=== PATIENT | male | born 1960 | race Caucasian/White ===

== ENCOUNTER 2016-08-12 06:22 | Day surgery (SDC) | payer BC ==
[2016-08-12] MEDS ORDERED: TAMSULOSIN HCL 0.4 MG CAP.ER.24H (FP) ONE (06:49)
[2016-08-12 07:34] VITALS: BMI 40.0
[2016-08-12] MEDS ORDERED: ROCURONIUM BROMIDE 50 MG/5 ML VIAL ONE ×2 (07:42→08:08)
[2016-08-12] MEDS ORDERED: MIDAZOLAM HCL 2 MG/2 ML SINGLE DOSE VIAL ONE (07:42)
[2016-08-12] MEDS ORDERED: PROPOFOL 20 ML ONE (07:42)
[2016-08-12] MEDS ORDERED: ceFAZolin SODIUM 1 GM VIAL ONE (08:08)
[2016-08-12] MEDS ORDERED: HYDROmorphone HCL/PF 1 MG/ML VIAL (FOR PYXIS CHARGING ONLY) ONE (08:32)
[2016-08-12] MEDS ORDERED: ONDANSETRON 4 MG/2 ML VIAL ONE (08:34)
[2016-08-12] MEDS ORDERED: DEXAMETHASONE SOD PHOSPHATE 4 MG/1 ML VIAL ONE (08:34)
[2016-08-12] MEDS ORDERED: ACETAMINOPHEN 325 MG TABLET (FP) PO PRN (09:38)
[2016-08-12] MEDS ORDERED: ONDANSETRON 4 MG/2 ML VIAL IVPUSH PRN (09:39)
[2016-08-12] MEDS ORDERED: LACTATED RINGERS SOLUTION 1,000 ML IV SCH (09:45)
--- NOTE | 2016-08-12 09:47 | OP ---
DATE OF OPERATION: 08/12/2016 PREOPERATIVE DIAGNOSIS: Incarcerated ventral hernia. POSTOPERATIVE DIAGNOSIS: Incarcerated ventral hernia. PROCEDURE: Repair of chronic incarcerated ventral hernia with mesh/intermediate wound closure (5cm). OPERATING SURGEON: Moi Villela MD NECK BAND SETTER: Yfn Kiran DO ANESTHESIA: Halima Del Valle MD (general) HISTORY: A 56-year-old man who presented for reduction and repair of chronically incarcerated ventral hernia with mesh. DESCRIPTION OF PROCEDURE: With the patient in the supine position, under general anesthesia, the abdomen was prepped and draped in sterile fashion using chlorhexidine. A 5-cm transverse incision was made directly over the obvious hernia, deepened into the subcutaneous space. The hernia sac was easily encountered. The sac was cleaned and freed to the level of the fascial ring. The fascial ring was incised circumferentially and the sac, along with its contents which appeared to be fibrofatty in nature, were entire reduced. Using sharp dissection, the retrorectus/preperitoneal space was developed in order to create sufficient room for placement of an underlying mesh. Ultimately, a Bard Ventralex hernia patch measuring 8 cm in diameter was selected for the repair. The patch was placed in the retrorectus/preperitoneal space. It was pulled up against the undersurface of the anterior abdominal wall musculature using a strap. It was fixed in each of its quadrants with a [id number] No. 1 Prolene suture, anchoring the mesh to the overlying rectus musculature. After adequate hemostasis and irrigation, the fascia was closed in a transverse fashion using interrupted 0 Vicryl sutures. Subcutaneous tissues were irrigated and adequate hemostasis noted. Ultimately the wound was closed in layers. Subcutaneous tissues were approximated with 3-0 chromic suture. The subcuticular was approximated with interrupted 4-0 Biosyn sutures. The skin was reapproximated with 4-0 Biosyn subcuticular stitch in continuous fashion. Dermabond applied, procedure terminated. Needle and instrument count correct. Estimated blood loss minimal. SPECIMEN: None. IMPLANT: Bard Ventralex hernia patch, 8 cm diameter. DRAINS: None. Phillip [id number] MTDD
--- NOTE | 2016-08-12 11:09 | HP ---
DATE OF ADMISSION: 08/12/2016 HISTORY: This 56-year-old man was admitted to the [facility] for reduction and repair of chronically incarcerated ventral hernia. Patient has had the hernia for some time. It has been becoming somewhat more symptomatic. He decided to move in the direction of management. No underlying GI, or respiratory complaints to suggest redisposition of hernia formation. PATIENTS PAST MEDICAL HISTORY: Significant for hypertension, gout, type 2 diabetes. PAST SURGICAL HISTORY: Significant for left neck excisional biopsy for benign entity remotely. FAMILY HISTORY: Father with history of cerebral aneurysm and stroke, mother with history of hypertension, siblings relatively healthy. SOCIAL HISTORY: Positive alcohol of 2-3 drinks weekly, former smoker up until 1984, not currently smoking. REVIEW OF SYSTEMS: Otherwise, nil. PHYSICAL EXAMINATION: Abdomen: Obese, soft, nontender. Obvious incarcerated ventral hernia stemming from the central ring in the abdomen involving the supraumbilical midline. No other significant findings. IMPRESSION: Chronically incarcerated ventral hernia. PLAN: Reduction and repair of chronically incarcerated ventral hernia with mesh. Indications, alternatives, possible complications were reviewed. Consent obtained. Patient is to be seen preoperatively by Dr. Christopher Shea. Please refer to his notes for those medical details. Phillip SOTO/[id number] cc: Christopher Shea MD
[2016-08-12 12:03] VITALS: BP 132/87; PULSE 56; TEMP 98
== END 2016-08-12 11:40 | disposition home or self-care (01) ==
LOC: FASU 06:22
PROVIDERS: ATTEND Surgery
PROC: 0WUF0JZ Supplement Abdominal Wall with Synthetic Substitute, Open Approach (ICD-10-PCS; principal; 2016-08-12 08:14)
DX: K43.6 Other and unspecified ventral hernia with obstruction, without gangrene (principal); I10 Essential (primary) hypertension; E11.9 Type 2 diabetes mellitus without complications; M10.9 Gout, unspecified
CPT/HCPCS: 94010; 94760

== ENCOUNTER 2018-05-07 09:40 | Emergency (ER) | payer BC ==
[2018-05-07 09:52] VITALS: PULSE 92; TEMP 97.8; BMI 38.2
--- NOTE | 2018-05-07 09:58 | PDOC ---
History of Present Illness - General Chief Complaint: Blood Pressure Problem Stated Complaint: BLOOD PRESSURE HIGH/CP Time Seen by Provider: 05/07/18 09:57 - History of Present Illness Initial Comments: 05/07/18 11:21 The patient is a 57 year old male with a history of HTN, DM who presents for evaluation of high blood pressure and chest pain. The patient notes intermittent pinpoint chest pain over the past few days since lifting his bike into his car. The patient noted that his blood pressure was elevated today prompting his presentation to the ED for further evaluation. He notes that he bikes 12 miles every other day and does not experience the chest pain when biking. He otherwise denies fevers, chills, SOB, nausea, vomiting, abdominal pain, or changes with urination or bowel movements. Past History - Past Medical History Allergies/Adverse Reactions: Allergies Allergy/AdvReac Type Severity Reaction Status Date / Time No Known Drug Allergies Allergy Verified 05/07/18 09:47 Home Medications: Ambulatory Orders Hydrochlorothiazide [Hctz -] 25 mg PO HS 08/20/13 Olmesartan Medoxomil [Benicar -] 20 mg PO HS 08/20/13 Potassium Chloride [K-Dur] 20 meq PO HS 08/20/13 Amlodipine Besylate [Norvasc -] 10 mg PO HS 08/05/16 Metoprolol Succinate [Toprol XL -] 200 mg PO HS 08/05/16 metFORMIN HCL [Metformin HCl] 1,000 mg PO DAILY 08/05/16 Allopurinol [Zyloprim -] 300 mg PO DAILY 05/07/18 Simethicone [Gas-X Ultra Strength] 1 tab PO ONCE 05/07/18 Anemia: No Asthma: No Cancer: Yes (BASAL CELL ON HANDS) Cardiac Disorders: No CVA: No COPD: No CHF: No Dementia: No Diabetes: Yes GI Disorders: No Disorders: No HTN: Yes Hypercholesterolemia: No Liver Disease: No Seizures: No Thyroid Disease: No - Surgical History Abdominal Surgery: No Appendectomy: No Cardiac Surgery: No Cholecystectomy: No Lung Surgery: No Neurologic Surgery: No Orthopedic Surgery: No - Immunization History Immunization Up to Date: Yes - Suicide/Smoking/Psychosocial Hx Smoking History: Never smoked Have you smoked in the past 12 months: No Number of Cigarettes Smoked Daily: 0 If you are a former smoker, when did you quit?: 0 Information on smoking cessation initiated: No Hx Alcohol Use: Yes (SOCIALLY) Drug/Substance Use Hx: No Substance Use Type: None Review of Systems - Review of Systems Comments:: 05/07/18 11:34 Constitutional: No fevers, chills, fatigue, malaise HEENT: No Rhinorrhea, nasal congestion, visual changes Cardiovascular: Chest pain. No syncope, palpitations, lightheadedness Respiratory: No Cough, SOB, Hemoptysis, Gastrointestinal: No Abdominal pain, Nausea, Vomiting, Constipation, Diarrhea, Melena Genitourinary: No Dysuria, Frequency, Urgency, Hesitancy, Hematuria, Flank pain Musculoskeletal: No Myalgia, arthralgia Skin: No rashes, itching, bruising, pallor Neurologic: No Headache, Dizziness, Numbness, Weakness, or Tingling Psychiatric: No Hallucinations. No SI or HI *Physical Exam - Vital Signs Last Vital Signs Temp Pulse Resp BP Pulse Ox 97.8 F 92 H 18 165/88 100 05/07/18 09:48 05/07/18 09:48 05/07/18 09:48 05/07/18 09:48 05/07/18 09:48 - Physical Exam Comments: 05/07/18 11:34 General Appearance: Nourished. No Apparent Distress HEENT: No Pharyngeal Erythema, Tonsillar Exudate, Tonsillar Erythema Neck: No Cervical Lymphadenopathy Respiratory/Chest: Lungs Clear, Normal Breath Sounds. No Crackles, Rales, Rhonchi, Wheezing Cardiovascular: Regular Rhythm, Regular Rate. No Murmur, Gallops, Rubs Gastrointestinal/Abdominal: Normal Bowel Sounds, Soft. No Guarding, Rebound, Tenderness Musculoskeletal: No CVA Tenderness Extremity: Normal Capillary Refill Integumentary: Normal Color, Dry, Warm Neurologic: Fully Oriented, Alert, Normal Mood/Affect, Normal Response, Heart Score/ECG Review - History History: Slightly suspicious - Electrocardiogram EKG: Normal - Age Age: 45-65 - Risk Factors Risk Factors Heart Score: Yes Hx Hypertension, Yes Hx Diabetes Based on the list above the patient has:: 1-2 risk factors - Troponin Troponin: </= normal limit - Score Heart Score - Total: 2 ED Treatment Course - LABORATORY CBC & Chemistry Diagram: 05/07/18 10:45 05/07/18 10:45 Medical Decision Making - Medical Decision Making 05/07/18 11:37 The patient is a 57 year old male with a history of HTN, DM who presents for evaluation of high blood pressure and chest pain. Differential includes but is not limited to: Musculskeletal, ACS, Infectious, Metabolic Derangement. Given the patient's history and physical exam, it is likely his symptoms are musculoskeletal in nature. We will obtain a cbc, cmp, troponin, ekg, chest plain film to evaluate further. We will continue to monitor and reassess while here in the ED. 05/07/18 14:38 CBC, cmp, troponin and second troponin are unremarkable. Chest plain film is unremarkable. We are comfortable discharging the patient home with primary care provider and cardiology follow up. We discussed the results, plan, and return precautions with the patient who voiced understanding and is agreeable with the plan. *DC/Admit/Observation/Transfer Diagnosis at time of Disposition: Chest pain Qualifiers: Chest pain type: unspecified Qualified Code(s): R07.9 - Chest pain, unspecified - Discharge Dispostion Disposition: HOME Condition at time of disposition: Stable Decision to Admit order: No - Referrals Referrals: Christopher Shea MD [Primary Care Provider] - - Patient Instructions Printed Discharge Instructions: DI for High Blood Pressure, DI for Chest Pain Additional Instructions: Please return to the ER if you experience concerning or worsening symptoms including worsening difficulty breathing, weakness, or chest pain. Your lab results were normal here in the ER. Please call to schedule a follow up appointment with your primary care provider and our furniture builder within 2-3 days to discuss your ER visit and further management of your symptoms. - Post Discharge Activity
--- NOTE | 2018-05-07 11:08 | PDOC ---
Attending Attestation - Resident Resident Name: Davion Olivera - ED Attending Attestation I have performed the following: I have examined & evaluated the patient, The case was reviewed & discussed with the resident, I agree w/resident's findings & plan, Exceptions are as noted - HPI HPI: 05/07/18 10:53 Mr De Jesus is a 57 yo M who presents to the ER today with a complaint of elevated BP and chest pain Pt has a h/o HTN Pt has been feeling bloated He checked his blood pressure and noted that it was elevated This made him anxious He also noted chest pain which has been present for the past 3 days Described as sharp, located in the center of the chest No radiation to the arm, jaw, or back No diaphoresis, no nausea Pain is worse with palpation of the chest, expanding the chest wall, deep breath Pt ride his bike for approximately 12 miles every other - Physicial Exam PE: 05/07/18 11:09 Pt is awake and alert, oriented RRR CTA B/L No abd tenderness Chest wall tenderness to palpation No lower extremity edema - Medical Decision Making 05/07/18 11:11 Heart score: 2 Can do 2 troponins EKG: NSR rate of 89 bpm, L axis deviation, no st elevation or depression, t waves upright Will do labs Will re assess 05/07/18 11:38 CXR: nml cardiopulmonary silhouette, no effusion, no consolidation, no infiltrates Laboratory Tests 05/07/18 05/07/18 10:45 10:45 WBC 5.1 Hgb 15.0 Hct 43.4 Plt Count 138 BUN 16 Creatinine 0.9 Creatine Kinase 53 Troponin I < 0.02 Will do 3 hour trop Pt stable 05/07/18 11:39 05/07/18 14:41 Repeat trop negative
[2018-05-07 11:10] LABS: BASO % 0.9 % (0-2.0); EOS % 2.3 % (0-4.5); HEMATOCRIT 43.4 % (35.4-49); LYMPH % 31.6 % (8-40); MCH 31.2 pg (25.7-33.7); MCHC 34.7 g/dl (32.0-35.9); MEAN PLT VOLUME 7.2 fl (7.5-11.1); MONO % 6.7 % (3.8-10.2); NEUT % 58.5 % (42.8-82.8); PLATELET COUNT 138 K/MM3 (134-434); RBC 4.82 M/mm3 (4.00-5.60); RDW 12.8 % (11.9-15.9); WHITE BLOOD COUNT 5.1 K/mm3 (4.0-10.0)
[2018-05-07 11:23] LABS: ALBUMIN 3.6 g/dl (3.4-5.0); ALK PHOS 62 U/L (45-117); ANION GAP 9 MMOL/L (8-16); BILIRUBIN,TOTAL 0.5 mg/dL (0.2-1); BLOOD UREA NITROGEN 16 mg/dL (7-18); CALCIUM 8.6 mg/dL (8.5-10.1); CHLORIDE 105 mmol/L (98-107); CO2 25 mmol/L (21-32); CREATININE 0.9 mg/dL (0.55-1.3); GLUCOSE,RANDOM 227 mg/dL (74-106); POTASSIUM 3.7 mmol/L (3.5-5.1); SGOT/AST 22 U/L (15-37); SGPT/ALT 41 U/L (13-61); SODIUM 139 mmol/L (136-145); TOT PROT 7.3 g/dl (6.4-8.2)
[2018-05-07 13:49] VITALS: BP 147/96
--- NOTE | 2018-05-08 10:56 | EKG ---
Test Reason : Blood Pressure : / mmHG Vent. Rate : 089 BPM Atrial Rate : 089 BPM P-R Int : 198 ms QRS Dur : 098 ms QT Int : 366 ms P-R-T Axes : 049 -33 042 degrees QTc Int : 445 ms NORMAL SINUS RHYTHM LEFT AXIS DEVIATION INFERIOR INFARCT (CITED ON OR BEFORE 03-JUN-2015) ABNORMAL ECG WHEN COMPARED WITH ECG OF 20-APR-2016 09:12, SINUS RHYTHM HAS REPLACED ATRIAL FIBRILLATION Confirmed by MANDEEP CALHOUN MD ([id number]) on 05/08/2018 10:56:00 AM Referred By: Confirmed By:MANDEEP CALHOUN MD
== END 2018-05-07 14:45 | disposition home or self-care (01) ==
LOC: JER 09:40
DX: R07.9 Chest pain, unspecified (principal); I10 Essential (primary) hypertension; E11.9 Type 2 diabetes mellitus without complications; Z79.84 Long term (current) use of oral hypoglycemic drugs; Z85.828 Personal history of other malignant neoplasm of skin
CPT/HCPCS: 36415; 71046-TC-FY; 80053; 82550; 84484; 85025; 93005; 93010; 99283-25

== ENCOUNTER 2019-09-27 12:45 | Emergency (ER) | payer BC ==
[2019-09-27 13:01] VITALS: BP 160/93; PULSE 87; TEMP 98.1; BMI 37.5
--- NOTE | 2019-09-27 13:22 | PDOC ---
History of Present Illness - General Chief Complaint: Weakness Stated Complaint: RT ARM PINS AND NEEDLES Time Seen by Provider: 09/27/19 13:22 - History of Present Illness Initial Comments: 09/27/19 14:18 59 yo M PMH HTN, NIDDM, presenting with R arm numbness and tingling. Reportedly went to the gym earlier today, was stretching his arm above his head, and felt a warm sensation down his arm which turned into pins and needles, focused primarily in the ulnar distribution. Coming and going, lasting minutes at a time. Describes sensation as "arm falling asleep". Denies weakness, denies any numbness or tingling elsewhere. Further denies CP, SOB, abd pain, fevers/chills, N/V, recent travel, [place]. Past History - Past Medical History Allergies/Adverse Reactions: Allergies Allergy/AdvReac Type Severity Reaction Status Date / Time No Known Drug Allergies Allergy Verified 09/27/19 13:01 Home Medications: Ambulatory Orders Hydrochlorothiazide [Hctz -] 25 mg PO HS 08/20/13 Olmesartan Medoxomil [Benicar -] 20 mg PO HS 08/20/13 Potassium Chloride [K-Dur] 20 meq PO HS 08/20/13 Amlodipine Besylate [Norvasc -] 10 mg PO HS 08/05/16 Metoprolol Succinate [Toprol XL -] 200 mg PO HS 08/05/16 metFORMIN HCL [Metformin HCl] 1,000 mg PO DAILY 08/05/16 Allopurinol [Zyloprim -] 300 mg PO DAILY 05/07/18 Simethicone [Gas-X Ultra Strength] 1 tab PO ONCE 05/07/18 Anemia: No Asthma: No Cancer: Yes (BASAL CELL ON HANDS) Cardiac Disorders: No CVA: No COPD: No CHF: No Dementia: No Diabetes: Yes GI Disorders: No Disorders: No HTN: Yes Hypercholesterolemia: No Liver Disease: No Seizures: No Thyroid Disease: No - Surgical History Abdominal Surgery: No Appendectomy: No Cardiac Surgery: No Cholecystectomy: No Lung Surgery: No Neurologic Surgery: No Orthopedic Surgery: No - Immunization History Immunization Up to Date: Yes - Psycho Social/Smoking Cessation Hx Smoking History: Never smoked Have you smoked in the past 12 months: No Number of Cigarettes Smoked Daily: 0 If you are a former smoker, when did you quit?: 0 Information on smoking cessation initiated: No Hx Alcohol Use: No Drug/Substance Use Hx: No Substance Use Type: None Review of Systems - Review of Systems Comments:: 09/27/19 14:36 GENERAL/CONSTITUTIONAL: denies fever, chills, diaphoresis, generalized weakness, malaise, loss of appetite, weight change HEAD, EYES, EARS, NOSE AND THROAT: denies rhinorrhea, nasal congestion, throat pain, throat swelling, difficulty swallowing, mouth swelling, ear pain, eye pain, visual changes NEUROLOGIC: endorses tingling down R arm, primarily in ulnar distribution. Denies headache, focal weakness, dizziness, unsteady gait, seizure, mental status changes, bladder or bowel incontinence CARDIOVASCULAR: denies chest pain, syncope, palpitations, irregular heart rate, lightheadedness, peripheral edema RESPIRATORY: denies cough, shortness of breath, dyspnea with exertion, orthopnea, wheezing, stridor, hemoptysis GASTROINTESTINAL: denies abdominal pain, abdominal distension, nausea, vomiting, diarrhea, constipation, melena, hematochezia GENITOURINARY: denies dysuria, frequency, urgency, hesitancy, hematuria, flank pain, genital pain MUSCULOSKELETAL: denies myalgia, arthralgia, joint swelling, back pain, neck pain SKIN: denies rash, itching, pallor HEMATOLOGIC/IMMUNOLOGIC: denies easy bleeding, easy bruising, lymphadenopathy, frequent infections ENDOCRINE: denies unexplained weight gain, unexplained weight loss, heat intolerance, cold intolerance PSYCHIATRIC: denies anxiety, depression, suicidal or homicidal ideation, hallucinations *Physical Exam - Vital Signs Last Vital Signs Temp Pulse Resp BP Pulse Ox 98.1 F 87 20 160/93 97 09/27/19 12:56 09/27/19 12:56 09/27/19 12:56 09/27/19 12:56 09/27/19 12:56 - Physical Exam 09/27/19 14:38 Gen: well-developed, well-nourished, NAD Neuro: AAOX4, CN II-XII intact, FTN intact, EOMI, PERRLA, 5/5 strength, SILT. Endorses tingling down R arm, specifically in ulnar distribution. HEENT: atraumatic, normocephalic Neck: trachea midline, supple CV: regular rate, regular rhythm, no murmurs, rubs, or gallops Pulm: CTA b/l, no wheezing Abd: soft, non-distended, non-tender MSK: full ROM, intact pulses Extr: no edema, no deformities Skin: warm, dry Medical Decision Making - Medical Decision Making 09/27/19 14:32 Concern for stretching of brachial plexus during stretching. Low suspicion for underlying stroke, malignancy, or ACS. Will refer to PCP and neuro for further outpatient management. 09/27/19 15:10 EKG normal sinus at 83 bpm, with LVH, prior inferior infarct, UT 204, QRS 104, QTc 448, appears unchanged from prior April 2018 EKG. Will dc for further outpatient management. Discharge - Discharge Information Problems reviewed: Yes Clinical Impression/Diagnosis: Tingling of right upper extremity Condition: Stable Disposition: HOME - Admission No - Follow up/Referral Referrals: Christopher Shea MD [Primary Care Provider] - Blaine Hughes MD [Staff Physician] - - Patient Discharge Instructions Additional Instructions: You were seen with tingling of your right arm. This is likely due to stretching of your arm that caused strain on nerves running under your armpit. This should improve over time; however, we have given a number to neurology. Please reach out for continuing or worsening symptoms. Follow up with your primary care doctor within one week. Return to the ED if you develop new or worsening symptoms; specifically if you develop worsening weakness, numbness, or tingling, or spread of symptoms to other locations. - Post Discharge Activity
--- NOTE | 2019-09-27 15:20 | PDOC ---
Documentation entered by Jeanne Hays SCRIBE, acting as scribe for Akash Montemayor MD. Akash Montemayor MD: This documentation has been prepared by the Lis villagran Adrianna, SCRIBE, under my direction and personally reviewed by me in its entirety. I confirm that the documentation accurately reflects all work, treatment, procedures, and medical decision making performed by me. Attending Attestation - Resident Resident Name: Jennifer Ugalde - ED Attending Attestation I have performed the following: I have examined & evaluated the patient, The case was reviewed & discussed with the resident, I agree w/resident's findings & plan, Exceptions are as noted - HPI HPI: The patient is a 59 year old male, with a significant PMH of HTN and NIDDM, presents with RUE paresthesias prior to arrival. Patient was at the gym earlier today working on an overhead stretch, when he suddenly felt warmth running down his RUE. This transitioned into numbness and tingling, which is now intermittent. Denies any trauma or injury to the RUE. Allergies: NKA, NKDA Surgical History: None reported Social History: No toxic habits - Physicial Exam PE: 09/27/19 15:14 Patient is awake and alert, well-nourished, in no distress Normocephalic, atraumatic PERRLA, EOMI Neck is supple, no midline tenderness to palpation RRR CTA No obvious deformity to the upper extremities, full range of motion at all 4 extremities, neurovascularly intact distally - Medical Decision Making 09/27/19 15:19 Patient 59-year-old male with history of hypertension hyperlipidemia and diabetes who presented with right-sided hand paresthesias after working out at the gym. At no time did the patient complain of chest discomfort. In the ER, patient is awake and alert, well-appearing in no distress EKG shows no evidence of acute ischemia. Patient is neurovascular intact distally. I do not suspect ACS or PE at this time. Will discharge with follow-up.
--- NOTE | 2019-09-28 14:04 | EKG ---
Test Reason : Blood Pressure : / mmHG Vent. Rate : 083 BPM Atrial Rate : 083 BPM P-R Int : 204 ms QRS Dur : 104 ms QT Int : 382 ms P-R-T Axes : 027 -29 014 degrees QTc Int : 448 ms NORMAL SINUS RHYTHM POSSIBLE LEFT ATRIAL ENLARGEMENT LEFT VENTRICULAR HYPERTROPHY INFERIOR INFARCT (CITED ON OR BEFORE 03-JUN-2015) ABNORMAL ECG WHEN COMPARED WITH ECG OF 07-MAY-2018 09:47, NO SIGNIFICANT CHANGE WAS FOUND Confirmed by ROSALINA NYE MD ([id number]) on 09/28/2019 2:04:23 PM Referred By: Confirmed By:ROSALINA NYE MD
== END 2019-09-27 15:28 | disposition home or self-care (01) ==
LOC: JER 12:45
DX: R20.2 Paresthesia of skin (principal); R20.0 Anesthesia of skin; R20.8 Other disturbances of skin sensation; I10 Essential (primary) hypertension; E11.9 Type 2 diabetes mellitus without complications
CPT/HCPCS: 93005; 93010; 99283-25